=== PATIENT | male | born 1985 | race Caucasian/White ===

== ENCOUNTER 2020-01-05 22:30 | Emergency (ER) | payer OTHER ==
[~2020-01-05] VITALS: Ht 182.9 cm; Wt 77.9 kg
[~2020-01-05 22:30] MED LIST: LEVA1TAB2 PO
[2020-01-05 23:31] LABS: HEMATOCRIT 47.4 % (42.0-52.0); HEMOGLOBIN 16.3 g/dl (13.5-17.5); MEAN CORPUSCULAR HEMOGLOBIN 33.3 pg (27.0-33.0); MEAN CORPUSCULAR HGB CONC 34.4 g/dl (32.0-36.5); MEAN CORPUSCULAR VOLUME 96.7 fl (80.0-96.0); PLATELET COUNT, AUTOMATED 257 10^3/uL (150-450); WHITE BLOOD COUNT 5.9 10^3/uL (4.0-10.0)
[2020-01-05 23:52] LABS: AMPHETAMINES LEVEL URINE NEGATIVE (NEGATIVE); BARBITURATES URINE NEGATIVE (NEGATIVE); BENZODIAZEPINES URINE NEGATIVE (NEGATIVE); CANNABINOIDS URINE NEGATIVE (NEGATIVE); COCAINE METABOLITE URINE NEGATIVE (NEGATIVE); METHADONE URINE NEGATIVE (NEGATIVE); OPIATES URINE NEGATIVE (NEGATIVE); PHENCYCLIDINE URINE NEGATIVE (NEGATIVE)
[2020-01-06 00:03] LABS: ACETAMINOPHEN LEVEL < 2.0 UG/ML (10.0-30.0); ALBUMIN 4.3 GM/DL (3.2-5.2); ALT/SGPT 130 U/L (12-78); BILIRUBIN,DIRECT 0.1 MG/DL (0.0-0.2); BILIRUBIN,TOTAL 0.3 MG/DL (0.2-1.0); BLOOD UREA NITROGEN 6 MG/DL (7-18); CALCIUM LEVEL 9.4 MG/DL (8.5-10.1); CARBON DIOXIDE LEVEL 31 MEQ/L (21-32); CHLORIDE LEVEL 110 MEQ/L (98-107); CREATININE FOR GFR 0.84 MG/DL (0.70-1.30); GLOMERULAR FILTRATION RATE > 60.0 (>60); GLUCOSE, FASTING 83 MG/DL (70-100); POTASSIUM SERUM 4.1 MEQ/L (3.5-5.1); SALICYLATE LEVEL 2.7 MG/DL (5.0-30.0); SODIUM LEVEL 147 MEQ/L (136-145); TOTAL PROTEIN 8.4 GM/DL (6.4-8.2)
[2020-01-06] MEDS ORDERED: LORazepam 2 MG TAB PO PRN (07:45)
[2020-01-06] MEDS ORDERED: THIAMINE 100 MG TAB PO SCH (09:00)
[2020-01-06] MEDS ORDERED: FOLIC ACID 1 MG TAB PO SCH (09:00)
[2020-01-06] MEDS ORDERED: MULTIVITAMINS/MINERALS THERAP 1 TAB PO SCH (09:00)
[2020-01-06 17:17] VITALS: BP 155/96
--- NOTE | 2020-01-15 11:34 | ECGEPIP ---
[facility] - ED Test Date: 2020-01-06 Pat Name: BHAVIN HARVEY Department: Room: - Gender: Male Bank Messenger: PABLO : [phone] Requested By: Venita Munguia Order Number: [id number] Reading MD: Venita Munguia Measurements Intervals [place] Rate: 60 P: 64 DC: 142 QRS: 59 QRSD: 89 T: 48 QT: 423 QTc: 423 Interpretive Statements SINUS BRADYCARDIA BORDERLINE ECG NONSPECIFIC STTD NO PRIOR DUE TO DOWNTIME SEE SCANNED DOWNTIME REPORT
== END 2020-01-06 17:21 ==
LOC: M ED 22:30
DX: R00.1 Bradycardia, unspecified (principal); R45.851 Suicidal ideations; F17.200 Nicotine dependence, unspecified, uncomplicated
CPT/HCPCS: 80048; 80076; 80307; 84443; 85027; 93005; 99285; G0480; U0002